=== PATIENT | female | born 1985 | race Caucasian/White ===

== ENCOUNTER 2018-04-19 15:15 | Observation (INO) | payer MEDICAID ==
[~2018-04-19] VITALS: Ht 165.1 cm; Wt 165.0 kg
[2018-04-19] MEDS ORDERED: levetiracetam inj 500 MG in normal saline 100ml IV soln 95 ML IV ONE (15:35)
[2018-04-19] MEDS ORDERED: normal saline 1000ML IV soln IVB ONE (15:35)
[2018-04-19 16:29] LABS: ALANINE AMINOTRANSFERASE 17 U/L (12-78); ALBUMIN 3.6 G/DL (3.4-5.0); ALBUMIN/GLOBULIN RATIO 0.9 (1.1-1.5); ALKALINE PHOSPHATASE 92 IU/L (46-116); ANION GAP 14 (8-16); ASPARTATE AMINO TRANSFERASE 14 U/L (10-37); BILIRUBIN,TOTAL 0.4 MG/DL (0.1-1.0); BLOOD UREA NITROGEN 11 MG/DL (7-18); BUN/CREATININE RATIO 17.2 (6.6-38.0); CALCIUM 8.6 MG/DL (8.5-10.1); CHLORIDE 103 MMOL/L (99-107); CREATININE 0.64 MG/DL (0.40-0.90); ETHANOL < 0.010 GM/DL (0.0-0.010); GLUCOSE 95 MG/DL (70-104); MAGNESIUM 2.1 MG/DL (1.5-2.4); POTASSIUM 3.4 MMOL/L (3.5-5.1); SODIUM 140 MMOL/L (135-145); TOTAL CARBON DIOXIDE 23.1 MMOL/L (24-32); TOTAL PROTEIN 7.5 G/DL (6.4-8.2); eGFR > 90 ML/MIN
[2018-04-19] MEDS ORDERED: LORazepam 2 mg/ml vial ONE (17:19)
[2018-04-19] MEDS ORDERED: LORazepam 2 mg/ml vial IV ONE ×3 (17:25→21:30)
[2018-04-19] MEDS ORDERED: morphine 4 MG/ML inj SYRINge IV ONE (17:30)
[2018-04-19] MEDS ORDERED: ondansetron/PF 4mg/2ml inj IV ONE (17:30)
[2018-04-19 19:47] LABS: URINE HCG NEGATIVE (NEG)
[2018-04-19 19:50] LABS: CLARITY,URINE CLEAR (Clear); COLOR,URINE STRAW (Yellow); GLUCOSE, URINE NEGATIVE (Neg); KETONES,URINE NEGATIVE (Neg); LEUKOCYTE ESTERASE ,URINE NEGATIVE (Neg); NITRITES, URINE NEGATIVE (Neg); OCCULT BLOOD,URINE NEGATIVE (Neg); PROTEIN,URINE NEGATIVE (Neg); UROBILINOGEN,URINE 0.2 E.U/dL (0.2-1.0)
[2018-04-19 19:52] LABS: UA COLLECTION TYPE NON-SPECIFIED
[2018-04-19 19:55] LABS: URINE AMPHETAMINE SCREEN NEGATIVE (Neg); URINE BARBITUATE SCREEN NEGATIVE (Neg); URINE BENZODIAZEPINES SCREEN NEGATIVE (Neg); URINE CANNABINOID SCREEN NEGATIVE (Neg); URINE COCAINE SCREEN NEGATIVE (Neg); URINE METHADONE SCREEN NEGATIVE (Neg); URINE OPIATE SCREEN POSITIVE (Neg); URINE PHENCYCLIDINE SCREEN NEGATIVE (Neg)
[2018-04-19] MEDS ORDERED: APIX5TAB3 PO (20:21)
[2018-04-19] MEDS ORDERED: LEVO137T2 PO (20:21)
[2018-04-19] MEDS ORDERED: SERT50TA PO (20:21)
[2018-04-19] MEDS ORDERED: PRAZ1CAP5 PO (20:21)
[2018-04-19] MEDS ORDERED: TRAZ-219 PO (20:21)
[2018-04-19] MEDS ORDERED: PANT40SU2 PO (20:21)
[2018-04-19] MEDS ORDERED: HYDR50TA3 PO (20:21)
[2018-04-19] MEDS ORDERED: LEVE10002 PO (20:23)
[2018-04-19] MEDS ORDERED: TOPI100T18 PO (20:23)
[2018-04-19] MEDS ORDERED: HYDR-3686 PO (20:24)
[2018-04-19] MEDS ORDERED: MONT10TA24 PO (20:24)
[2018-04-19] MEDS ORDERED: acetaminophen 325mg tablet PO PRN ×2 (20:30)
[2018-04-19] MEDS ORDERED: potassium Cl 40MEQ/NS 500ml 500 ML IV PRN ×2 (20:30)
[2018-04-19] MEDS ORDERED: ondansetron/PF 4mg/2ml inj IV PRN ×2 (20:30)
[2018-04-19] MEDS ORDERED: potassium Cl 20 mEq SR tablet PO PRN ×2 (20:30)
[2018-04-19] MEDS ORDERED: magnesium Cl slow-release 64mg tablet PO PRN (20:30)
[2018-04-19] MEDS ORDERED: magnesium hydroxide 30ml (MOM) UD suspension PO PRN (20:30)
[2018-04-19] MEDS ORDERED: magnesium 4gm in 100ml NS 100 ML IV PRN (20:30)
[2018-04-19] MEDS ORDERED: mag hydrox/Alum hydrox/simeth 30ml oral suspension PO PRN (20:30)
[2018-04-19] MEDS ORDERED: magnesium 1gm/100ml D5W IVPB 100 ML IV PRN (20:30)
[2018-04-19] MEDS ORDERED: hydrOXYzine 25 MG tablet PO PRN (20:35)
[2018-04-19 20:57] LABS: BASOPHILS % (AUTO) 0.4 % (0-1); EOSINOPHILS # (AUTO) 0.1 X10'3 (0-0.9); EOSINOPHILS % (AUTO) 2.9 % (0-6); HEMATOCRIT 34.5 % (35.0-45.0); HEMOGLOBIN 11.4 g/dl (12.0-16.0); LYMPHOCYTES % (AUTO) 22.2 % (21-51); MEAN CORPUSCULAR HEMOGLOBIN 28.4 PG (27.0-31.0); MEAN CORPUSCULAR VOLUME 86.2 FL (78-98); MEAN PLATELET VOLUME 10.5 FL (7.4-10.4); MONOCYTES # (AUTO) 0.4 X10'3 (0-0.9); MONOCYTES % (AUTO) 8.7 % (2-12); NEUTROPHILS % (AUTO) 65.8 % (42-75); PLATELET COUNT 141 X10'3 (140-440); RED CELL DISTRIBUTION WIDTH 16.3 % (11.5-14.5); WHITE BLOOD COUNT 4.6 X10'3 (4.5-11.0)
[2018-04-19] MEDS: traZODone 50mg tablet PO SCH (21:00)
[2018-04-19] MEDS ORDERED: temazepam 15mg capsule PO PRN (21:00)
[2018-04-19] MEDS ORDERED: non-formulary drug (Trazodone HCl 2 TAB) PO SCH (21:00)
[2018-04-19 22:10] VITALS: BP 110/66
[2018-04-19] MEDS: normal saline 1000ml 1,000 ML IV SCH (22:16)
[2018-04-19] MEDS: levetiracetam inj 1,500 MG in normal saline 100ml IV soln 85 ML IV SCH (22:16)
[2018-04-19] MEDS ORDERED: diphenhydrAMINE 50 mg/ml inj IV ONE (22:30)
[2018-04-19] MEDS ORDERED: metoclopramide 5 mg/ml inj IV ONE (22:30)
[2018-04-19] MEDS ORDERED: proCHLORperazine 10 MG/2 ml inj IM ONE (22:40)
[2018-04-20] MEDS: normal saline 1000ml 1,000 ML IV SCH ×4 (03:06→23:05)
[2018-04-20 06:00] VITALS: BP 111/61
[2018-04-20 06:33] LABS: BASOPHILS % (AUTO) 0.4 % (0-1); EOSINOPHILS # (AUTO) 0.2 X10'3 (0-0.9); EOSINOPHILS % (AUTO) 3.6 % (0-6); HEMATOCRIT 32.9 % (35.0-45.0); HEMOGLOBIN 10.8 g/dl (12.0-16.0); LYMPHOCYTES # (AUTO) 0.9 X10'3 (1.1-4.8); LYMPHOCYTES % (AUTO) 21.1 % (21-51); MEAN CORPUSCULAR HEMOGLOBIN 28.5 PG (27.0-31.0); MEAN CORPUSCULAR HGB CONC 32.9 % (33.0-36.5); MEAN CORPUSCULAR VOLUME 86.7 FL (78-98); MEAN PLATELET VOLUME 10.1 FL (7.4-10.4); MONOCYTES # (AUTO) 0.5 X10'3 (0-0.9); MONOCYTES % (AUTO) 12.4 % (2-12); NEUTROPHILS # (AUTO) 2.7 X10'3 (1.8-7.7); NEUTROPHILS % (AUTO) 62.5 % (42-75); PLATELET COUNT 139 X10'3 (140-440); RED BLOOD COUNT 3.79 X10'6 (4.20-5.60); RED CELL DISTRIBUTION WIDTH 16.3 % (11.5-14.5); WHITE BLOOD COUNT 4.3 X10'3 (4.5-11.0)
[2018-04-20 06:43] LABS: ALBUMIN 2.9 G/DL (3.4-5.0); ANION GAP 9 (8-16); BLOOD UREA NITROGEN 10 MG/DL (7-18); BUN/CREATININE RATIO 17.2 (6.6-38.0); CALCIUM 8.2 MG/DL (8.5-10.1); CHLORIDE 109 MMOL/L (99-107); CREATININE 0.58 MG/DL (0.40-0.90); GLUCOSE 95 MG/DL (70-104); POTASSIUM 3.9 MMOL/L (3.5-5.1); SODIUM 140 MMOL/L (135-145); TOTAL CARBON DIOXIDE 22.1 MMOL/L (24-32); eGFR > 90 ML/MIN
[2018-04-20] MEDS: levoTHYROXINE 25mcg tablet PO SCH (07:15)
[2018-04-20] MEDS: levoTHYROXINE 112mcg tablet PO SCH (07:15)
[2018-04-20] MEDS: pantoprazole 40mg Tablet.DR PO SCH (07:15)
[2018-04-20] MEDS: levetiracetam inj 1,500 MG in normal saline 100ml IV soln 85 ML IV SCH ×2 (07:15→19:44)
[2018-04-20] MEDS: apixaban 5mg tablet PO SCH ×2 (07:16→19:43)
[2018-04-20] MEDS: montelukast 10mg tablet PO SCH (07:20)
[2018-04-20] MEDS: sertraline 50mg tablet PO SCH (07:21)
[2018-04-20] MEDS: topiramate 100mg tablet PO SCH ×2 (07:21→19:43)
[2018-04-20] MEDS: proCHLORperazine 10 MG/2 ml inj IV PRN ×2 (07:21→16:19)
[2018-04-20] MEDS: K and/or MAG REPLACEMENT MC SCH (07:35)
[2018-04-20] MEDS ORDERED: non-formulary drug (Levothyroxine Sodium 1 TAB) PO SCH (08:00)
[2018-04-20] MEDS ORDERED: levetiracetam 250mg tablet PO SCH (08:00)
[2018-04-20] MEDS ORDERED: non-formulary drug (Hydrochlorothiazide 1 TAB) PO SCH (08:00)
[2018-04-20] MEDS ORDERED: LEVETIRACETAM PO SCH (08:00)
[2018-04-20] MEDS ORDERED: non-formulary drug (Pantoprazole Sodium (Protonix) 40 MG) PO SCH (08:00)
[2018-04-20] MEDS ORDERED: HYDROchlorothiazide 25mg tablet PO SCH (08:00)
[2018-04-20 10:00] VITALS: BP 110/65
[2018-04-20] MEDS ORDERED: traMADol 50MG tablet PO ONE (10:40)
[2018-04-20 18:00] VITALS: BP 100/62
[2018-04-20] MEDS: traMADol 50MG tablet PO PRN (19:07)
[2018-04-20] MEDS: traZODone 50mg tablet PO SCH (20:53)
[2018-04-20 22:00] VITALS: BP 97/55
[2018-04-21] MEDS: proCHLORperazine 10 MG/2 ml inj IV PRN (03:29)
[2018-04-21] MEDS: traMADol 50MG tablet PO PRN (03:29)
[2018-04-21 06:00] VITALS: BP 103/56
[2018-04-21] MEDS: normal saline 1000ml 1,000 ML IV SCH (06:46)
[2018-04-21 06:52] LABS: BASOPHILS % (AUTO) 0.4 % (0-1); EOSINOPHILS # (AUTO) 0.1 X10'3 (0-0.9); EOSINOPHILS % (AUTO) 3.1 % (0-6); HEMATOCRIT 32.6 % (35.0-45.0); HEMOGLOBIN 10.8 g/dl (12.0-16.0); LYMPHOCYTES # (AUTO) 0.9 X10'3 (1.1-4.8); LYMPHOCYTES % (AUTO) 21.3 % (21-51); MEAN CORPUSCULAR HEMOGLOBIN 28.6 PG (27.0-31.0); MEAN CORPUSCULAR HGB CONC 33.1 % (33.0-36.5); MEAN CORPUSCULAR VOLUME 86.4 FL (78-98); MEAN PLATELET VOLUME 10.3 FL (7.4-10.4); MONOCYTES # (AUTO) 0.4 X10'3 (0-0.9); MONOCYTES % (AUTO) 9.9 % (2-12); NEUTROPHILS # (AUTO) 2.7 X10'3 (1.8-7.7); NEUTROPHILS % (AUTO) 65.3 % (42-75); PLATELET COUNT 139 X10'3 (140-440); RED BLOOD COUNT 3.77 X10'6 (4.20-5.60); WHITE BLOOD COUNT 4.1 X10'3 (4.5-11.0)
[2018-04-21 07:11] LABS: ALBUMIN 2.7 G/DL (3.4-5.0); ANION GAP 9 (8-16); BLOOD UREA NITROGEN 10 MG/DL (7-18); BUN/CREATININE RATIO 15.9 (6.6-38.0); CHLORIDE 109 MMOL/L (99-107); CREATININE 0.63 MG/DL (0.40-0.90); GLUCOSE 92 MG/DL (70-104); POTASSIUM 3.4 MMOL/L (3.5-5.1); SODIUM 141 MMOL/L (135-145); TOTAL CARBON DIOXIDE 22.8 MMOL/L (24-32); eGFR > 90 ML/MIN
[2018-04-21] MEDS: K and/or MAG REPLACEMENT MC SCH (08:00)
[2018-04-21] MEDS: levoTHYROXINE 112mcg tablet PO SCH (08:24)
[2018-04-21] MEDS: levetiracetam inj 1,500 MG in normal saline 100ml IV soln 85 ML IV SCH (08:24)
[2018-04-21] MEDS: pantoprazole 40mg Tablet.DR PO SCH (08:24)
[2018-04-21] MEDS: levoTHYROXINE 25mcg tablet PO SCH (08:24)
[2018-04-21] MEDS: apixaban 5mg tablet PO SCH (08:25)
[2018-04-21] MEDS: montelukast 10mg tablet PO SCH (08:25)
[2018-04-21] MEDS ORDERED: diphenhydrAMINE 25mg capsule PO PRN (08:25)
[2018-04-21] MEDS: topiramate 100mg tablet PO SCH (08:26)
[2018-04-21] MEDS: sertraline 50mg tablet PO SCH (08:26)
[2018-04-21] MEDS ORDERED: BUTA-281 PO (10:08)
== END 2018-04-21 11:00 | disposition home or self-care (01) ==
LOC: ER 15:16 → ED HOLD 20:26 → ORTHO 4S 22:09
PROVIDERS: ADMIT Hospitalist; ATTEND Internal Medicine
DX: G40.909 Epilepsy, unspecified, not intractable, without status epilepticus (principal); E86.0 Dehydration; J45.909 Unspecified asthma, uncomplicated; D68.51 Activated protein C resistance; R59.9 Enlarged lymph nodes, unspecified; Z79.01 Long term (current) use of anticoagulants
CPT/HCPCS: 36415; 70450; 80048; 80053; 80305; 80320; 81003; 81025; 83735; 85025; 87070; 96361; 96365; 96372; 96375; 96376; 99285; G0378; J0780; J1200; J1953; J2060; J2270; J2405; J3480; J7030; Q0163

== ENCOUNTER 2018-10-03 15:02 | Emergency (ER) | payer MEDICAID ==
[~2018-10-03] VITALS: Ht 165.1 cm; Wt 169.0 kg
[~2018-10-03 15:02] MED LIST: APIX5TAB3 PO; BUTA-281 PO; HYDR-3686 PO; HYDR50TA3 PO; LEVE10002 PO; LEVO137T2 PO; MONT10TA24 PO; PANT40SU2 PO; PRAZ1CAP5 PO; SERT50TA PO; TOP100T PO; TRAZ-219 PO
[2018-10-03 15:06] VITALS: BP 176/105
[2018-10-03] MEDS ORDERED: TRAM50TA2 PO (16:34)
== END 2018-10-03 16:40 | disposition home or self-care (01) ==
LOC: ER 15:02
DX: S60.211A Contusion of right wrist, initial encounter (principal); S69.91XA Unspecified injury of right wrist, hand and finger(s), initial encounter; Z88.0 Allergy status to penicillin; Z88.8 Allergy status to other drugs, medicaments and biological substances; Z88.6 Allergy status to analgesic agent; Z88.1 Allergy status to other antibiotic agents; Z91.040 Latex allergy status; W23.0XXA Caught, crushed, jammed, or pinched between moving objects, initial encounter; Y93.89 Activity, other specified; Y92.89 Other specified places as the place of occurrence of the external cause; Y99.8 Other external cause status
CPT/HCPCS: 29125; 73110; 99284

== ENCOUNTER 2019-03-27 13:34 | Inpatient (IN) | payer MEDICAID ==
[~2019-03-27] VITALS: Ht 165.1 cm; Wt 147.4 kg
[~2019-03-27 13:34] MED LIST changes: +etomidate 2mg/ml inj. ONE; +rocuronium 10mg/ml inj IV ONE; +sodium chloride 0.9% 10ml vial - diluent IJ ONE
[2019-03-27] MEDS ORDERED: LORazepam 2 mg/ml vial ONE (13:56)
[2019-03-27] MEDS ORDERED: propofol 1000mg/100ml bottle 100 ML IV ONE (13:58)
[2019-03-27] MEDS ORDERED: propofol 1000mg/100ml bottle 100 ML IV SCH (14:12)
--- NOTE | 2019-03-27 14:20 | NUR ---
PT UPGRADED TO A LEVEL [address] LORENZO HAS BEEN CONTACTED
[2019-03-27 14:41] LABS: BASOPHILS % (AUTO) 0.5 % (0-1); EOSINOPHILS # (AUTO) 0.1 X10'3 (0-0.9); EOSINOPHILS % (AUTO) 1.7 % (0-6); HEMATOCRIT 37.7 % (35.0-45.0); HEMOGLOBIN 12.1 g/dl (12.0-16.0); LYMPHOCYTES # (AUTO) 1.6 X10'3 (1.1-4.8); LYMPHOCYTES % (AUTO) 25.4 % (21-51); MEAN CORPUSCULAR HEMOGLOBIN 27.7 PG (27.0-31.0); MEAN CORPUSCULAR HGB CONC 32.1 g/dL (33.0-36.5); MEAN CORPUSCULAR VOLUME 86.3 FL (78-98); MEAN PLATELET VOLUME 10.1 FL (7.4-10.4); MONOCYTES # (AUTO) 0.8 X10'3 (0-0.9); MONOCYTES % (AUTO) 13.3 % (2-12); NEUTROPHILS # (AUTO) 3.8 X10'3 (1.8-7.7); NEUTROPHILS % (AUTO) 59.1 % (42-75); PLATELET COUNT 151 X10'3 (140-440); RED BLOOD COUNT 4.37 X10'6 (4.20-5.60); RED CELL DISTRIBUTION WIDTH 16.9 % (11.5-14.5); WHITE BLOOD COUNT 6.4 X10'3 (4.5-11.0)
[2019-03-27 14:52] LABS: PARTIAL THROMBOPLASTIN TIME 26 SECONDS (22-32)
[2019-03-27 14:53] LABS: ALANINE AMINOTRANSFERASE 21 U/L (12-78); ALBUMIN 3.3 G/DL (3.4-5.0); ALBUMIN/GLOBULIN RATIO 0.8 (1.1-1.5); ALKALINE PHOSPHATASE 92 IU/L (46-116); ANION GAP 10 (8-16); ASPARTATE AMINO TRANSFERASE 14 U/L (10-37); BILIRUBIN,TOTAL 0.3 MG/DL (0.1-1.0); BLOOD UREA NITROGEN 12 MG/DL (7-18); BUN/CREATININE RATIO 17.9 (6.6-38.0); CHLORIDE 111 MMOL/L (99-107); CREATININE 0.67 MG/DL (0.40-0.90); GLUCOSE 98 MG/DL (70-104); POTASSIUM 3.6 MMOL/L (3.5-5.1); SODIUM 145 MMOL/L (135-145); TOTAL CARBON DIOXIDE 24.5 MMOL/L (24-32); TOTAL PROTEIN 7.3 G/DL (6.4-8.2); TRIGLYCERIDES 211 MG/DL (20-135); eGFR > 90 ML/MIN
[2019-03-27 14:55] LABS: ETHANOL < 0.010 GM/DL (0.0-0.010)
[2019-03-27 15:01] LABS: HCG SERUM QL NEGATIVE
[2019-03-27 15:15] LABS: CLARITY,URINE CLEAR (Clear); COLOR,URINE YELLOW (Yellow); GLUCOSE, URINE NEGATIVE (Neg); KETONES,URINE TRACE mg/dl (Neg); LEUKOCYTE ESTERASE ,URINE NEGATIVE (Neg); NITRITES, URINE NEGATIVE (Neg); OCCULT BLOOD,URINE NEGATIVE (Neg); PROTEIN,URINE NEGATIVE (Neg)
[2019-03-27 15:16] LABS: PLATELET ESTIMATE NORMAL; TOTAL CELLS COUNTED 100
[2019-03-27 15:17] LABS: UA COLLECTION TYPE FOLEY CATH
[2019-03-27 15:17] LABS: ANISOCYTOSIS 1+; LARGE PLATELETS FEW
[2019-03-27] MEDS: midazolam 100mg in NS 100ml 100 ML IV PRN ×2 (15:23→20:21)
[2019-03-27 15:29] LABS: URINE AMPHETAMINE SCREEN NEGATIVE (Neg); URINE BARBITUATE SCREEN NEGATIVE (Neg); URINE BENZODIAZEPINES SCREEN NEGATIVE (Neg); URINE CANNABINOID SCREEN NEGATIVE (Neg); URINE COCAINE SCREEN NEGATIVE (Neg); URINE METHADONE SCREEN NEGATIVE (Neg); URINE OPIATE SCREEN NEGATIVE (Neg); URINE PHENCYCLIDINE SCREEN NEGATIVE (Neg)
--- NOTE | 2019-03-27 15:29 | NUR ---
FACE SHEET FAXED TO [facility]
--- NOTE | 2019-03-27 15:31 | NUR ---
Per Dr Aguilera hold Propofol at this time (see emar).
--- NOTE | 2019-03-27 15:40 | NUR ---
2mg IV bolus of Versed given at this time per order (see emar).
--- NOTE | 2019-03-27 15:55 | NUR ---
Dr Thomason in to speak with patient and family, patient nods she wants the tube taken out, patient able to follow simple commands, versed drip held per MD for assessment; patient able to move all extremities, VSS, sedation turned back on per MD.
--- NOTE | 2019-03-27 16:14 | NUR ---
Per Dr Thomason patient is to remain intubated at this time, family made aware, patient updated, VSS.
[2019-03-27] MEDS ORDERED: morphine 2 MG/ML inj. syringe IV PRN (16:35)
[2019-03-27] MEDS ORDERED: acetaminophen 325mg tablet PO PRN ×2 (16:35)
[2019-03-27] MEDS ORDERED: sodium phosphate inj. 15 MMOL in dextrose 5%-water 150 ML IV PRN (16:35)
[2019-03-27] MEDS ORDERED: Neutra Phos packet PO PRN (16:35)
[2019-03-27] MEDS ORDERED: sodium phosphate inj. 30 MMOL in dextrose 5%-water 250 ML IV PRN (16:35)
[2019-03-27] MEDS ORDERED: ondansetron/PF 4mg/2ml inj IV PRN (16:35)
[2019-03-27] MEDS ORDERED: potassium Cl 20 mEq SR tablet PO PRN ×2 (16:35)
--- NOTE | 2019-03-27 16:50 | NUR ---
2mg IV bolus given at this time per order (see emar).
[2019-03-27] MEDS ORDERED: SERT100T10 PO (17:04)
[2019-03-27] MEDS ORDERED: GABA300C PO (17:04)
[2019-03-27] MEDS ORDERED: LEVE750T6 PO (17:04)
[2019-03-27] MEDS ORDERED: NITR100C6 PO (17:04)
[2019-03-27] MEDS ORDERED: METH500T6 PO (17:04)
[2019-03-27] MEDS ORDERED: LEVO50TA8 PO (17:04)
[2019-03-27] MEDS ORDERED: DULO30CA52 PO (17:04)
[2019-03-27] MEDS ORDERED: PRAZ2CAP2 PO (17:04)
[2019-03-27] MEDS ORDERED: MONT10TA21 PO (17:08)
[2019-03-27] MEDS ORDERED: FURO-150 PO (17:08)
[2019-03-27 17:15] LABS: ABG BASE EXCESS -5.6 mmol/L (-2.0-3.0); ABG HCO3 20.6 mmol/L (22.0-26.0); ABG OXYGEN SATURATION 99.1 % (95-98); ABG PH (T) 7.299 (7.350-7.450); ABG PO2 (T) 517.5 mmHg (83-108); ALLEN'S TEST Positive; FCOHb 0.3 % (0.5-1.5); FMetHb 0.1 % (0.3-1.12); FO2Hb 98.7 % (94-100); MINUTE VOLUME 9 L/min; PEEP 10 cm H2O; RESPIRATORY RATE 16 b/min; RESPIRATORY RATE (OBSERVED) 18 b/min; TIDAL VOLUME 450 mL; TOTAL HEMOGLOBIN 12.4 G/dl (12.0-16.0)
[2019-03-27] MEDS: morphine 4 MG/ML inj SYRINge IV PRN (17:23)
[2019-03-27] MEDS: normal saline 1000ml 1,000 ML IV SCH (18:10)
--- NOTE | 2019-03-27 19:16 | NUR ---
2mg IV bolus of Versed given at this time per protocol for restlessness.
--- NOTE | 2019-03-27 20:15 | NUR ---
Spoke with leader tier Scout Cruz and asked about continuation of home medications. Family was concerned over seizure medication. Anthony reported that he would take a look at her medication reconciliation.
[2019-03-27] MEDS ORDERED: FENTANYL-0.9 % NACL/PF 100 ML IV PRN (20:30)
--- NOTE | 2019-03-27 21:43 | NUR ---
family at the bedside. Pt on ventilator, IVFs infusing to right foot without any s/s of infiltrate. Her wrists are in soft restraints. Removed and re applied. All skin looks WNLs. OG tube to LIWS. VSS.
--- NOTE | 2019-03-27 23:08 | NUR ---
pt awake, wanted nose suctioned and her trach suctioned. Pre oxygenated and 2 passed ETT completed. Stuart to both nares. Asked patient if she wants to be sedated, she shook her head yes. Versed 2 mg bolus and will increase rates.
--- NOTE | 2019-03-27 23:13 | NUR ---
parents went over to the [facility] for the night.
--- NOTE | 2019-03-27 23:28 | NUR ---
THE WRIST BAND WAS REMOVED FROM HER RIGHT WRIST AND A NEW ONE PLACED TO HER LEFT ANKLE. IT WAS UNDER THE RESTRAINT, AND I DIDN'T WANT IT THERE.
--- NOTE | 2019-03-28 00:19 | NUR ---
HOVERMAT PLACED UNDER PATIENT, PT TRANSFERRED TO HOSPITAL BED FOR COMFORT.
--- NOTE | 2019-03-28 00:33 | NUR ---
hover mat placed under patient, she was able to assist in rolling from side to side and she was moved over to the hospital bed. The patient was awake, she was comfortable, and it went very smoothly. Additional staff there to assist. IV, ETT, OG, castañeda all working properly. Fresh tele pads placed and old ones (all of them) removed. Covered with a blanket. HOB elevated slightly. She drifted off to sleep again. VSS. UOP 5 mls this past hour. Will recheck again and monitor that.
[2019-03-28 03:15] LABS: ABG BASE EXCESS -5.8 mmol/L (-2.0-3.0); ABG HCO3 19.6 mmol/L (22.0-26.0); ABG OXYGEN SATURATION 97.1 % (95-98); ABG PH (T) 7.322 (7.350-7.450); ABG PO2 (T) 111.1 mmHg (83-108); ALLEN'S TEST Positive; FCOHb 0.7 % (0.5-1.5); FMetHb 0.3 % (0.3-1.12); FO2Hb 96.1 % (94-100); MINUTE VOLUME 7 L/min; PATIENT TEMPERATURE 37.4; PEEP 5 cm H2O; RESPIRATORY RATE 12 b/min; RESPIRATORY RATE (OBSERVED) 13 b/min; TIDAL VOLUME 450 mL; TOTAL HEMOGLOBIN 11.6 G/dl (12.0-16.0)
--- NOTE | 2019-03-28 04:38 | NUR ---
PT RESTING COMFORTABLY. VSS. TERESA EMPTYING WNLS. THE IV IN HER RIGHT FOOT IS INFUSING WNLS.
[2019-03-28] MEDS: normal saline 1000ml 1,000 ML IV SCH (06:13)
[2019-03-28] MEDS: midazolam 100mg in NS 100ml 100 ML IV PRN (06:16)
--- NOTE | 2019-03-28 06:28 | NUR ---
pt awake/suctioned ETT and oropharynx
--- NOTE | 2019-03-28 06:36 | NUR ---
assumed care of pt, pt resting in bed on her back, fio2 at 30% no s/s of resp. distress. fentanyl running at 6.5 mg, 6.5 mls/hr versed at 10 mg, 10 mls/hr ns at 75 mls/hr
--- NOTE | 2019-03-28 06:45 | NUR ---
pt reports pain at this time, gave 25 mcg fentanyl bolus per protocol in emar
[2019-03-28 06:46] LABS: BASOPHILS % (AUTO) 0.1 % (0-1); EOSINOPHILS # (AUTO) 0.1 X10'3 (0-0.9); EOSINOPHILS % (AUTO) 1.2 % (0-6); HEMOGLOBIN 11.1 g/dl (12.0-16.0); LYMPHOCYTES # (AUTO) 0.6 X10'3 (1.1-4.8); MEAN CORPUSCULAR HEMOGLOBIN 27.7 PG (27.0-31.0); MEAN CORPUSCULAR HGB CONC 32.6 g/dL (33.0-36.5); MEAN CORPUSCULAR VOLUME 85.1 FL (78-98); MEAN PLATELET VOLUME 9.8 FL (7.4-10.4); MONOCYTES # (AUTO) 0.6 X10'3 (0-0.9); MONOCYTES % (AUTO) 7.3 % (2-12); NEUTROPHILS # (AUTO) 6.6 X10'3 (1.8-7.7); NEUTROPHILS % (AUTO) 83.4 % (42-75); PLATELET COUNT 134 X10'3 (140-440); RED BLOOD COUNT 3.99 X10'6 (4.20-5.60); RED CELL DISTRIBUTION WIDTH 16.7 % (11.5-14.5); WHITE BLOOD COUNT 7.9 X10'3 (4.5-11.0)
[2019-03-28 06:58] LABS: ALANINE AMINOTRANSFERASE 29 U/L (12-78); ALBUMIN 2.8 G/DL (3.4-5.0); ALBUMIN/GLOBULIN RATIO 0.8 (1.1-1.5); ALKALINE PHOSPHATASE 84 IU/L (46-116); ANION GAP 11 (8-16); ASPARTATE AMINO TRANSFERASE 16 U/L (10-37); BILIRUBIN,TOTAL 0.4 MG/DL (0.1-1.0); BLOOD UREA NITROGEN 10 MG/DL (7-18); BUN/CREATININE RATIO 21.3 (6.6-38.0); CALCIUM 7.8 MG/DL (8.5-10.1); CHLORIDE 112 MMOL/L (99-107); CREATININE 0.47 MG/DL (0.40-0.90); GLUCOSE 101 MG/DL (70-104); MAGNESIUM 1.8 MG/DL (1.5-2.4); PHOSPHORUS 2.7 MG/DL (2.3-4.5); POTASSIUM 3.6 MMOL/L (3.5-5.1); SODIUM 144 MMOL/L (135-145); TOTAL CARBON DIOXIDE 21.4 MMOL/L (24-32); TOTAL PROTEIN 6.4 G/DL (6.4-8.2); TRIGLYCERIDES 126 MG/DL (20-135); eGFR > 90 ML/MIN
--- NOTE | 2019-03-28 07:10 | NUR ---
called to give report to the CICU, ALONSO Ortega is asking if we can hold the pt until dr walker is able to reassess the pt at 0800 re: extubation so as she could be sent to a different floor, new bremen supDiomedes Denny is in accordance with this plan as well, per Shannon. ER ALONSO was made aware of this plan.
[2019-03-28] MEDS ORDERED: pantoprazole 40 MG vial IV SCH (08:00)
--- NOTE | 2019-03-28 09:00 | NUR ---
at 0845 rt rojelio trevino and students at the bedside for extubation as ordered by dr jim. og was removed and pt extubated, pt tolerated well, no stridor noted after extubation, nasal canula at 2 L/min administered with 95% sats resulting. fentanyl and versed were dc'ed after extubation as well. will continue to monitor pt.
--- NOTE | 2019-03-28 09:23 | NUR ---
Break RN; Pt resting comfortably on hospital bed with eyes closed. Pt does not exhibit S/S of distress. Oxygenating well. Expressive Music Therapist at bedside.
[2019-03-28] MEDS: morphine 4 MG/ML inj SYRINge IV PRN (11:26)
[2019-03-28] MEDS ORDERED: guaiFENesin/codeine phos 10ml UD oral syrup PO PRN (13:20)
[2019-03-28] MEDS ORDERED: magnesium Cl slow-release 64mg tablet PO PRN (13:20)
[2019-03-28] MEDS ORDERED: morphine 2 MG/ML inj. syringe IV PRN (13:20)
[2019-03-28] MEDS ORDERED: magnesium 2GM in 50ml NS 50 ML IV PRN (13:20)
[2019-03-28] MEDS ORDERED: magnesium hydroxide 30ml (MOM) UD suspension PO PRN (13:20)
[2019-03-28] MEDS ORDERED: mag hydrox/Alum hydrox/simeth 30ml oral suspension PO PRN (13:20)
[2019-03-28] MEDS ORDERED: potassium Cl 20 mEq SR tablet PO PRN ×2 (13:20)
[2019-03-28] MEDS ORDERED: magnesium 4gm in 100ml NS 100 ML IV PRN (13:20)
[2019-03-28] MEDS ORDERED: normal saline 1000ml 1,000 ML IV SCH (13:20)
[2019-03-28] MEDS ORDERED: HYDROcodone/acetaminophen 5mg/325mg tablet PO PRN (13:20)
[2019-03-28] MEDS ORDERED: acetaminophen 325mg tablet PO PRN ×2 (13:20)
[2019-03-28] MEDS ORDERED: potassium CL 10mEq/100ml bag 100 ML IV PRN ×2 (13:20)
[2019-03-28] MEDS ORDERED: ondansetron/PF 4mg/2ml inj IV PRN (13:20)
--- NOTE | 2019-03-28 13:47 | NUR ---
Informed Dr Rogers about 2 minute seizure, instructed to follow updated MAR and results were expected
[2019-03-28] MEDS: morphine 2 MG/ML inj. syringe IV PRN ×3 (14:10→21:52)
[2019-03-28 14:55] VITALS: BP 100/62
[2019-03-28] MEDS: pantoprazole 40mg Tablet.DR PO SCH (15:20)
[2019-03-28] MEDS: levoTHYROXINE 25mcg tablet PO SCH (15:21)
[2019-03-28] MEDS: HYDROcodone/acetaminophen 10/325mg tab PO PRN ×2 (15:23→20:44)
--- NOTE | 2019-03-28 16:10 | NUR ---
PAGER ID: [phone] MESSAGE: RE: [phone] Angie Thomas. Patients mother asking about home med methocarbamol (Robaxin), It wasn't continued. Says helps w/ pain that triggers seizure. Patient is [birth year]19 sharda ALEJANDRO [id number]
[2019-03-28] MEDS ORDERED: cyclobenzaprine 10mg tablet PO PRN (16:30)
[2019-03-28] MEDS: gabapentin 300mg capsule PO SCH ×2 (16:50→20:43)
[2019-03-28] MEDS: cyclobenzaprine 10mg tablet PO PRN (16:50)
--- NOTE | 2019-03-28 18:30 | NUR ---
Patient in room ORTHO 4017. I have received report from Aguila FERRARO and had the opportunity to ask questions and assume patient care.
--- NOTE | 2019-03-28 19:00 | NUR ---
Patient in room ORTHO 4017. I have received report from Cassy FERRARO and had the opportunity to ask questions and assume patient care.
[2019-03-28] MEDS ORDERED: docusate sod 100mg capsule PO SCH (20:00)
[2019-03-28] MEDS: duloxetine 30mg CAPSULE.DR PO SCH (20:42)
[2019-03-28] MEDS: levetiracetam 250mg tablet PO SCH (20:43)
[2019-03-28] MEDS: apixaban 5mg tablet PO SCH (20:43)
[2019-03-28] MEDS: heparin, porcine 5000 units/ml vial SQ SCH (20:46)
[2019-03-28] MEDS ORDERED: temazepam 15mg capsule PO PRN (21:00)
[2019-03-28] MEDS: topiramate 100mg tablet PO SCH (21:52)
[2019-03-29] MEDS: morphine 2 MG/ML inj. syringe IV PRN ×5 (01:40→19:14)
--- NOTE | 2019-03-29 01:56 | NUR ---
PT stated that she developed a blind spot in the left lower area in her field of vision. she thinks she developed it 2 and 1/2 hours earlier when she sneezed. Notified DR. Alonso, he wanted to do a head CT to rule out a bleed. PT was taken to CT via [place] bed. PT tolerated it well.
--- NOTE | 2019-03-29 02:08 | NUR ---
radiology on-call asked for MD's phone number for results. gave Dr. Gomes's phone number. no change in assess.
[2019-03-29] MEDS: HYDROcodone/acetaminophen 10/325mg tab PO PRN ×4 (04:27→22:29)
[2019-03-29 06:00] VITALS: BP 111/64
[2019-03-29 06:21] LABS: BASOPHILS % (AUTO) 0.4 % (0-1); EOSINOPHILS # (AUTO) 0.1 X10'3 (0-0.9); EOSINOPHILS % (AUTO) 2.7 % (0-6); HEMATOCRIT 35.9 % (35.0-45.0); HEMOGLOBIN 11.6 g/dl (12.0-16.0); LYMPHOCYTES # (AUTO) 0.5 X10'3 (1.1-4.8); LYMPHOCYTES % (AUTO) 13.8 % (21-51); MEAN CORPUSCULAR HEMOGLOBIN 27.8 PG (27.0-31.0); MEAN CORPUSCULAR HGB CONC 32.4 g/dL (33.0-36.5); MEAN CORPUSCULAR VOLUME 85.9 FL (78-98); MONOCYTES # (AUTO) 0.4 X10'3 (0-0.9); MONOCYTES % (AUTO) 11.4 % (2-12); NEUTROPHILS # (AUTO) 2.5 X10'3 (1.8-7.7); NEUTROPHILS % (AUTO) 71.7 % (42-75); PLATELET COUNT 120 X10'3 (140-440); RED BLOOD COUNT 4.18 X10'6 (4.20-5.60); RED CELL DISTRIBUTION WIDTH 17.1 % (11.5-14.5); WHITE BLOOD COUNT 3.5 X10'3 (4.5-11.0)
[2019-03-29 06:36] LABS: ALANINE AMINOTRANSFERASE 62 U/L (12-78); ALBUMIN 2.9 G/DL (3.4-5.0); ALBUMIN/GLOBULIN RATIO 0.7 (1.1-1.5); ALKALINE PHOSPHATASE 111 IU/L (46-116); ANION GAP 7 (8-16); ASPARTATE AMINO TRANSFERASE 61 U/L (10-37); BILIRUBIN,TOTAL 0.6 MG/DL (0.1-1.0); BLOOD UREA NITROGEN 7 MG/DL (7-18); BUN/CREATININE RATIO 11.7 (6.6-38.0); CALCIUM 8.1 MG/DL (8.5-10.1); CHLORIDE 109 MMOL/L (99-107); MAGNESIUM 1.9 MG/DL (1.5-2.4); POTASSIUM 3.5 MMOL/L (3.5-5.1); SODIUM 140 MMOL/L (135-145); TOTAL CARBON DIOXIDE 23.6 MMOL/L (24-32); eGFR > 90 ML/MIN
[2019-03-29 06:40] LABS: GLUCOSE 88 MG/DL (70-104)
--- NOTE | 2019-03-29 06:40 | NUR ---
Patient in room ORTHO 4017. I have received report from Aguila FERRARO and had the opportunity to ask questions and assume patient care.
[2019-03-29] MEDS: apixaban 5mg tablet PO SCH ×2 (07:44→20:01)
[2019-03-29] MEDS: pantoprazole 40mg Tablet.DR PO SCH (07:44)
[2019-03-29] MEDS: gabapentin 300mg capsule PO SCH ×3 (07:44→20:10)
[2019-03-29] MEDS: levetiracetam 250mg tablet PO SCH ×2 (07:44→20:01)
[2019-03-29] MEDS: levoTHYROXINE 25mcg tablet PO SCH (07:45)
[2019-03-29] MEDS: montelukast 10mg tablet PO SCH (07:45)
[2019-03-29] MEDS: heparin, porcine 5000 units/ml vial SQ SCH (07:49)
[2019-03-29] MEDS ORDERED: sertraline 50mg tablet PO SCH (08:00)
[2019-03-29] MEDS: K and/or MAG REPLACEMENT MC SCH (08:00)
[2019-03-29 10:00] VITALS: BP 120/75
[2019-03-29] MEDS: topiramate 100mg tablet PO SCH ×2 (10:30→20:01)
[2019-03-29] MEDS: cyclobenzaprine 10mg tablet PO PRN (14:02)
--- NOTE | 2019-03-29 14:11 | NUR ---
PAGER ID: [phone] MESSAGE: RE: [phone] Angie Thomas. Patient just had seizure like activity. Tremors and eyes rolled back of head for about 3 minutes. Awake and alert now and complaining of headache. FLAVIA [id number]
--- NOTE | 2019-03-29 16:18 | NUR ---
CALLED TO REQUEST MEDICAL RECORDS FROM [facility] AND [facility], BOTH MEDICAL RECORDS ARE CLOSED AND UNABLE TO PROCESS TODAY. FAXED MEDICAL RELEASE OF INFORMATION TO BOTH FACILITIES.
[2019-03-29] MEDS ORDERED: hydrOXYzine 25 MG tablet PO PRN (17:20)
[2019-03-29 18:00] VITALS: BP 102/67
--- NOTE | 2019-03-29 18:00 | NUR ---
Patient in room ORTHO 4017. I have received report from RONAN Madera and had the opportunity to ask questions and assume patient care.
--- NOTE | 2019-03-29 18:24 | NUR ---
Problems reprioritized. Patient report given, questions answered & plan of care reviewed with Babita FERRARO.
[2019-03-29 20:00] VITALS: BP_SYST 101; BP_SYST 106; BP_DIAS 54; BP_DIAS 63
[2019-03-29] MEDS ORDERED: nitrofuran/nitrofuran macrocrysal 100 MG capsule PO SCH (20:00)
[2019-03-29] MEDS: prazosin 1mg capsule PO SCH (20:10)
[2019-03-29] MEDS: duloxetine 30mg CAPSULE.DR PO SCH (20:11)
[2019-03-29] MEDS: mirtazapine 15mg tablet PO SCH (20:11)
[2019-03-29] MEDS ORDERED: montelukast 10mg tablet PO SCH (21:00)
[2019-03-29 22:00] VITALS: BP 106/63
[2019-03-30] VITALS (7 sets, daily range): BP systolic 96–119; BP diastolic 54–85
[2019-03-30] MEDS: morphine 2 MG/ML inj. syringe IV PRN ×5 (00:28→19:21)
[2019-03-30 05:57] LABS: BASOPHILS % (AUTO) 0.6 % (0-1); EOSINOPHILS # (AUTO) 0.1 X10'3 (0-0.9); EOSINOPHILS % (AUTO) 2.4 % (0-6); HEMATOCRIT 35.9 % (35.0-45.0); HEMOGLOBIN 11.7 g/dl (12.0-16.0); LYMPHOCYTES # (AUTO) 0.5 X10'3 (1.1-4.8); LYMPHOCYTES % (AUTO) 15.6 % (21-51); MEAN CORPUSCULAR HEMOGLOBIN 27.9 PG (27.0-31.0); MEAN CORPUSCULAR HGB CONC 32.5 g/dL (33.0-36.5); MEAN PLATELET VOLUME 10.2 FL (7.4-10.4); MONOCYTES # (AUTO) 0.4 X10'3 (0-0.9); MONOCYTES % (AUTO) 14.9 % (2-12); NEUTROPHILS % (AUTO) 66.5 % (42-75); PLATELET COUNT 117 X10'3 (140-440); RED BLOOD COUNT 4.18 X10'6 (4.20-5.60); RED CELL DISTRIBUTION WIDTH 16.6 % (11.5-14.5)
--- NOTE | 2019-03-30 06:00 | NUR ---
Patient in room ORTHO 4017. I have received report from Babita FERRARO and had the opportunity to ask questions and assume patient care.
--- NOTE | 2019-03-30 06:27 | NUR ---
Problems reprioritized. Patient report given, questions answered & plan of care reviewed with RONAN Madera.
[2019-03-30 06:47] LABS: ALANINE AMINOTRANSFERASE 85 U/L (12-78); ALBUMIN 2.9 G/DL (3.4-5.0); ALBUMIN/GLOBULIN RATIO 0.7 (1.1-1.5); ALKALINE PHOSPHATASE 121 IU/L (46-116); ANION GAP 9 (8-16); ASPARTATE AMINO TRANSFERASE 53 U/L (10-37); BILIRUBIN,TOTAL 0.4 MG/DL (0.1-1.0); BLOOD UREA NITROGEN 8 MG/DL (7-18); BUN/CREATININE RATIO 13.8 (6.6-38.0); CALCIUM 8.3 MG/DL (8.5-10.1); CHLORIDE 109 MMOL/L (99-107); CREATININE 0.58 MG/DL (0.40-0.90); GLUCOSE 96 MG/DL (70-104); MAGNESIUM 1.9 MG/DL (1.5-2.4); PHOSPHORUS 3.3 MG/DL (2.3-4.5); POTASSIUM 3.5 MMOL/L (3.5-5.1); SODIUM 141 MMOL/L (135-145); TOTAL CARBON DIOXIDE 23.2 MMOL/L (24-32); eGFR > 90 ML/MIN
[2019-03-30 07:33] LABS: ANISOCYTOSIS 1+; PLATELET ESTIMATE DECREASED; TOTAL CELLS COUNTED 100
[2019-03-30] MEDS: K and/or MAG REPLACEMENT MC SCH (08:00)
[2019-03-30] MEDS: furosemide 20MG tablet PO SCH (08:26)
[2019-03-30] MEDS: multivitamins, therapeutics tablet PO SCH (08:26)
[2019-03-30] MEDS: levetiracetam 250mg tablet PO SCH ×2 (08:26→20:23)
[2019-03-30] MEDS: potassium Cl 20 mEq SR tablet PO SCH (08:26)
[2019-03-30] MEDS: montelukast 10mg tablet PO SCH (08:26)
[2019-03-30] MEDS: pantoprazole 40mg Tablet.DR PO SCH (08:26)
[2019-03-30] MEDS: gabapentin 300mg capsule PO SCH ×3 (08:26→20:24)
[2019-03-30] MEDS: sertraline 50mg tablet PO SCH (08:27)
[2019-03-30] MEDS: apixaban 5mg tablet PO SCH ×2 (08:27→20:24)
[2019-03-30] MEDS: prazosin 1mg capsule PO SCH ×3 (08:27→20:27)
[2019-03-30] MEDS: cetirizine 10mg tablet PO SCH (08:27)
[2019-03-30] MEDS: topiramate 100mg tablet PO SCH ×2 (08:27→20:24)
--- NOTE | 2019-03-30 09:19 | NUR ---
PAGER ID: [phone] MESSAGE: RE: [phone] FREDY MILIAN. Patient claustrophobic, can we get Ativan for MRI today? FLAVIA [id number]
[2019-03-30] MEDS ORDERED: LORazepam 2 mg/ml vial IM ONE (09:25)
[2019-03-30] MEDS: HYDROcodone/acetaminophen 10/325mg tab PO PRN ×3 (09:55→22:03)
[2019-03-30] MEDS ORDERED: LORazepam 2 mg/ml vial IV ONE (10:05)
[2019-03-30] MEDS: levoTHYROXINE 25mcg tablet PO SCH (11:34)
[2019-03-30] MEDS: benzocaine/menthol oral lozeng 1 EACH BOX MM PRN (11:39)
[2019-03-30 16:00] LABS: ABG BASE EXCESS -2.2 mmol/L (-2.0-3.0); ABG HCO3 22.3 mmol/L (22.0-26.0); ABG OXYGEN SATURATION 92.3 % (95-98); ABG PCO2 (T) 37.3 mmHg (35.0-45.0); ABG PH (T) 7.394 (7.350-7.450); ABG PO2 (T) 66.8 mmHg (83-108); ALLEN'S TEST Positive; FCOHb 0.4 % (0.5-1.5); FO2Hb 91.9 % (94-100); TOTAL HEMOGLOBIN 11.9 G/dl (12.0-16.0)
--- NOTE | 2019-03-30 18:00 | NUR ---
Patient in room ORTHO 4017. I have received report from RONAN Madera and had the opportunity to ask questions and assume patient care.
--- NOTE | 2019-03-30 18:18 | NUR ---
Problems reprioritized. Patient report given, questions answered & plan of care reviewed with Babita FERRARO.
[2019-03-30] MEDS: mirtazapine 15mg tablet PO SCH (20:23)
[2019-03-30] MEDS: duloxetine 30mg CAPSULE.DR PO SCH (20:23)
[2019-03-31] MEDS: benzocaine/menthol oral lozeng 1 EACH BOX MM PRN (00:04)
[2019-03-31] MEDS: morphine 2 MG/ML inj. syringe IV PRN ×3 (00:05→13:14)
[2019-03-31] MEDS: HYDROcodone/acetaminophen 10/325mg tab PO PRN ×2 (03:39→12:14)
[2019-03-31 06:00] VITALS: BP 90/56
--- NOTE | 2019-03-31 06:15 | NUR ---
Problems reprioritized. Patient report given, questions answered & plan of care reviewed with RONAN Manning.
--- NOTE | 2019-03-31 06:30 | NUR ---
Patient in room ORTHO 4017. I have received report from RONAN Rodriguez and had the opportunity to ask questions and assume patient care.
[2019-03-31] MEDS: pantoprazole 40mg Tablet.DR PO SCH (06:50)
[2019-03-31] MEDS: levoTHYROXINE 25mcg tablet PO SCH (06:50)
[2019-03-31] MEDS ORDERED: levoFLOXACIN-Levaquin 500mg/D5 100 ML IV SCH (08:00)
[2019-03-31 08:16] VITALS: BP_SYST 120; BP_SYST 121; BP_SYST 122; BP_DIAS 70; BP_DIAS 80; BP_DIAS 84
[2019-03-31] MEDS: apixaban 5mg tablet PO SCH (08:42)
[2019-03-31] MEDS: potassium Cl 20 mEq SR tablet PO SCH (08:42)
[2019-03-31] MEDS: furosemide 20MG tablet PO SCH (08:42)
[2019-03-31] MEDS: levetiracetam 250mg tablet PO SCH (08:42)
[2019-03-31] MEDS: gabapentin 300mg capsule PO SCH ×2 (08:43→12:15)
[2019-03-31] MEDS: multivitamins, therapeutics tablet PO SCH (08:43)
[2019-03-31] MEDS: topiramate 100mg tablet PO SCH (08:43)
[2019-03-31] MEDS: sertraline 50mg tablet PO SCH (08:43)
[2019-03-31] MEDS: prazosin 1mg capsule PO SCH (08:43)
[2019-03-31] MEDS: cetirizine 10mg tablet PO SCH (08:43)
[2019-03-31] MEDS: montelukast 10mg tablet PO SCH (08:43)
[2019-03-31 10:00] VITALS: BP 120/70
[2019-03-31 11:19] LABS: BASOPHILS % (AUTO) 0.4 % (0-1); EOSINOPHILS # (AUTO) 0.1 X10'3 (0-0.9); EOSINOPHILS % (AUTO) 3.1 % (0-6); HEMATOCRIT 34.1 % (35.0-45.0); HEMOGLOBIN 11.2 g/dl (12.0-16.0); LYMPHOCYTES # (AUTO) 0.6 X10'3 (1.1-4.8); LYMPHOCYTES % (AUTO) 23.6 % (21-51); MEAN CORPUSCULAR HEMOGLOBIN 27.7 PG (27.0-31.0); MEAN CORPUSCULAR HGB CONC 32.8 g/dL (33.0-36.5); MEAN CORPUSCULAR VOLUME 84.6 FL (78-98); MEAN PLATELET VOLUME 9.2 FL (7.4-10.4); MONOCYTES # (AUTO) 0.3 X10'3 (0-0.9); MONOCYTES % (AUTO) 13.7 % (2-12); NEUTROPHILS # (AUTO) 1.4 X10'3 (1.8-7.7); NEUTROPHILS % (AUTO) 59.2 % (42-75); PLATELET COUNT 103 X10'3 (140-440); RED BLOOD COUNT 4.03 X10'6 (4.20-5.60); RED CELL DISTRIBUTION WIDTH 16.5 % (11.5-14.5); WHITE BLOOD COUNT 2.4 X10'3 (4.5-11.0)
[2019-03-31 11:31] LABS: ALANINE AMINOTRANSFERASE 66 U/L (12-78); ALBUMIN 2.8 G/DL (3.4-5.0); ALBUMIN/GLOBULIN RATIO 0.7 (1.1-1.5); ALKALINE PHOSPHATASE 104 IU/L (46-116); ANION GAP 7 (8-16); ASPARTATE AMINO TRANSFERASE 35 U/L (10-37); BILIRUBIN,TOTAL 0.2 MG/DL (0.1-1.0); BLOOD UREA NITROGEN 6 MG/DL (7-18); BUN/CREATININE RATIO 9.4 (6.6-38.0); CALCIUM 8.2 MG/DL (8.5-10.1); CHLORIDE 108 MMOL/L (99-107); CREATININE 0.64 MG/DL (0.40-0.90); GLUCOSE 107 MG/DL (70-104); MAGNESIUM 1.7 MG/DL (1.5-2.4); PHOSPHORUS 2.3 MG/DL (2.3-4.5); SODIUM 140 MMOL/L (135-145); TOTAL CARBON DIOXIDE 24.8 MMOL/L (24-32); TOTAL PROTEIN 6.6 G/DL (6.4-8.2); eGFR > 90 ML/MIN
[2019-03-31 12:09] LABS: ANISOCYTOSIS 1+; HYPOCHROMASIA 1+; PLATELET ESTIMATE DECREASED; POLYCHROMASIA FEW; TOTAL CELLS COUNTED 100
[2019-03-31] MEDS ORDERED: LEVO500T2 PO (13:12)
[2019-03-31] MEDS ORDERED: POTA20TA10 PO (14:36)
--- NOTE | 2019-03-31 15:30 | NUR ---
Received discharge orders from Dr. Rogers. Telemetry dc'd by RONAN Otto. Saline lock dc'd by Clarita in right foot. Discharge via w/c to private vehicle to home. RX ordered by Dr. Rogers for Levofloxacin. Attempted to call prescription to [facility] in [place] but they are closed today. Will call in RX tomorrow morning for pt to car pick up driver then. Pt notified.
--- NOTE | 2019-04-01 10:16 | NUR ---
TC made to [facility] in [place] ([phone]), to call in discharge prescription for Levaquin 500mg po qd #7 no refills per . TC made to pt and informed RX had been called in and she may pick it up from the Pharmacy today.
== END 2019-03-31 15:30 | disposition home or self-care (01) | DRG 133 ==
LOC: ER 13:35 → ED HOLD 16:31 → EDBEDREQTM 23:05 → EDBEDREQSVC 03-28 13:58 → ORTHO 4S 03-28 14:45
PROVIDERS: ADMIT Internal Medicine Critical Care Medicine; ATTEND Internal Medicine
PROC: 5A1935Z Respiratory Ventilation, Less than 24 Consecutive Hours (ICD-10-PCS; principal; 2019-03-27)
PROC: 0BH17EZ Insertion of Endotracheal Airway into Trachea, Via Natural or Artificial Opening (ICD-10-PCS; 2019-03-27)
DX: J96.00 Acute respiratory failure, unspecified whether with hypoxia or hypercapnia (principal); D68.51 Activated protein C resistance; D68.2 Hereditary deficiency of other clotting factors; E66.01 Morbid (severe) obesity due to excess calories; E03.9 Hypothyroidism, unspecified; F32.9 Major depressive disorder, single episode, unspecified; G40.909 Epilepsy, unspecified, not intractable, without status epilepticus; G43.909 Migraine, unspecified, not intractable, without status migrainosus; J45.909 Unspecified asthma, uncomplicated; W01.0XXA Fall on same level from slipping, tripping and stumbling without subsequent striking against object, initial encounter; K21.9 Gastro-esophageal reflux disease without esophagitis; G89.4 Chronic pain syndrome; M19.90 Unspecified osteoarthritis, unspecified site; M79.7 Fibromyalgia; Z90.710 Acquired absence of both cervix and uterus; Z91.81 History of falling; Z68.43 Body mass index [BMI] 50.0-59.9, adult; Y93.89 Activity, other specified; Y92.89 Other specified places as the place of occurrence of the external cause; Y99.8 Other external cause status; Z88.8 Allergy status to other drugs, medicaments and biological substances; Z79.899 Other long term (current) drug therapy
CPT/HCPCS: 36415; 36600; 70450; 70551; 71045; 71250; 72125; 73060; 73090; 80053; 80305; 80320; 81003; 82803; 83036; 83605; 83735; 84100; 84132; 84145; 84443; 84478; 84703; 85007; 85018; 85025; 85610; 85730; 87040; 87070; 87077; 87081; 87186; 92508; 92616; 93005; 93306; 94002; 94003; 94760; 97110; 97116; 97162; 97530; 99291; C9113; G0378; J1644; J1956; J2060; J2250; J2270; J2405; J2704; J3010; Z7610

== ENCOUNTER 2020-12-16 09:21 | Emergency (ER) | payer MEDICAID ==
[~2020-12-16] VITALS: Ht 165.1 cm; Wt 185.4 kg
[~2020-12-16 09:21] MED LIST changes: -BUTA-281 PO; +DULO30CA52 PO; +FURO-150 PO; +GABA300C PO; -HYDR-3686 PO; -HYDR50TA3 PO; -LEVE10002 PO; +LEVE750T6 PO; -LEVO137T2 PO; +LEVO50TA8 PO; +METH-797 PO; +MONT10TA21 PO; -MONT10TA24 PO; +MONT10TA32 PO; +NITR100C6 PO; +POTA20TA10 PO; -PRAZ1CAP5 PO; +PRAZ2CAP2 PO; +SERT-434 PO; -SERT50TA PO; -TRAZ-219 PO; -etomidate 2mg/ml inj. ONE; -rocuronium 10mg/ml inj IV ONE; -sodium chloride 0.9% 10ml vial - diluent IJ ONE
--- NOTE | 2020-12-16 11:52 | NUR ---
pt is being evaluated by provider, pt is 35 yo female c/o piece of metal from bed frame in rt lower leg on December 13, pt tripped over dog, seen a different facility and referred to outpt surgery 01/07, dressing is dry and intact, pt c/o fever last night 102 degrees, took tylenol, +drainage per pt, has been on amoxicillin for tooth infection 12/12, finished 7 day course, pt has factor 5 blood d/o, referred to ER by bell person
[2020-12-16] MEDS ORDERED: SULF1TAB49 PO (12:29)
[2020-12-16] MEDS ORDERED: HYDR-3965 PO (12:40)
[2020-12-16] MEDS ORDERED: HYDROcodone/acetaminophen 5mg/325mg tablet PO ONE (12:45)
--- NOTE | 2020-12-16 13:27 | NUR ---
4X4 GUAZE APPLIED TO RT LOWER LEG AND COBAN,
[2020-12-16 13:28] VITALS: BP 114/68
== END 2020-12-16 13:29 | disposition home or self-care (01) ==
LOC: ER 09:21
DX: M79.5 Residual foreign body in soft tissue (principal); L03.115 Cellulitis of right lower limb; Z86.69 Personal history of other diseases of the nervous system and sense organs; Z88.1 Allergy status to other antibiotic agents; Z88.8 Allergy status to other drugs, medicaments and biological substances; Z91.040 Latex allergy status; Z91.011 Allergy to milk products; Z88.0 Allergy status to penicillin; Z79.899 Other long term (current) drug therapy; Z79.2 Long term (current) use of antibiotics
CPT/HCPCS: 73590; 99284

== ENCOUNTER 2023-06-23 12:10 | Day surgery (SDC) | payer MEDICAID ==
[~2023-06-23] VITALS: Ht 165.1 cm; Wt 159.0 kg
[~2023-06-23 12:10] MED LIST changes: +MONT-40 PO; +MONT-47 PO; -MONT10TA21 PO; -MONT10TA32 PO; +POTA-197 PO; -POTA20TA10 PO
[2023-06-23 12:22] VITALS: BP 127/77; PULSE 92; RESP 22
[2023-06-23] MEDS ORDERED: TEMA15CA5 PO (12:38)
[2023-06-23] MEDS ORDERED: BUSP10TA11 PO (12:40)
[2023-06-23] MEDS ORDERED: fentaNYL/PF 50MCG/1 ML 2ML syringe ONE ×2 (15:51→16:07)
[2023-06-23] MEDS ORDERED: MIDAZolam 1 MG/ML 5ML VIAL ONE ×2 (15:52→16:07)
[2023-06-23] MEDS ORDERED: LIDOcaine Viscous 15ml cup ONE (15:52)
[2023-06-23] MEDS ORDERED: diphenhydrAMINE 50 mg/ml inj ONE (16:29)
[2023-06-23 17:01] VITALS: BP 114/75; PULSE 89; RESP 13; O2SAT 99
[2023-06-23 17:11] VITALS: BP 131/85; PULSE 90; RESP 18; O2SAT 98
[2023-06-23 17:21] VITALS: BP 122/71; PULSE 87; RESP 18; O2SAT 96
[2023-06-23 17:31] VITALS: BP 112/68; PULSE 88; RESP 17; O2SAT 98
== END 2023-06-23 17:35 | disposition home or self-care (01) ==
LOC: GI LAB 12:10
PROVIDERS: ATTEND Internal Medicine Gastroenterology
DX: R10.13 Epigastric pain (principal); R11.2 Nausea with vomiting, unspecified; R10.30 Lower abdominal pain, unspecified; K29.50 Unspecified chronic gastritis without bleeding; J45.909 Unspecified asthma, uncomplicated; K21.9 Gastro-esophageal reflux disease without esophagitis
CPT/HCPCS: 43239; 99152; J1200; J2250; J3010; J7030; Z7512; 43251; A4620; C1889